=== PATIENT | female | born 1970 | race African-American/Black ===

== ENCOUNTER → 2020-11-25 | Outpatient (CLI) | payer OTHER ==
--- NOTE | 2020-11-26 20:55 | SLEEP ---
DATE OF STUDY: 11/25/2020 SLEEP STUDY REFERRING PHYSICIAN: Dr. Joyce Escalante. The patient is a 50-year-old who weighs 230 pounds with a BMI of 35. The patient's Madison score was 5. The patient underwent split night study performed at [facility]. During the night study, the patient spent 502 minutes in bed and slept for 399 minutes with a sleep efficiency of 79%. Sleep latency was 10 minutes with an absent REM sleep. Sleep architecture showed increased stage 1 sleep, normal stage 2 sleep, normal slow wave and absent REM sleep. During initial diagnostic portion of the study, the patient slept for 125 minutes. During that time, patient had 64 obstructive apneas, 27 mixed apneas and 9 central apneas. The patient also had 25 hypopneas. The patient's AHI was 60 per hour. Supine AHI 67 per hour. REM sleep was not observed. EKG monitoring revealed no sustained arrhythmias. Average heart rate was 57 beats per minute. No significant PLMs seen. Nocturnal oximetry study revealed a mean oxygen saturation of 94% with lowest of 84%. Only 6% of time oxygen saturation remained between 80 and 89%. The patient met the criteria for CPAP initiation. It was started at 5 cm water and titrated up to 9 cm water. At the final pressure, the patient slept for 73 minutes. The patient had supine sleep, but no REM sleep. The patient's AHI was reduced to 2 per hour and oxygen saturation remained above 90%. The patient used large sized nasal pillows. IMPRESSION: 1. Severe obstructive sleep apnea at an AHI of 60 per hour. 2. Mild nocturnal hypoxia secondary to obstructive sleep apnea, but resolved with CPAP. 3. No clinically significant periodic limb movements. RECOMMENDATIONS: 1. CPAP at 9 cm water completely eliminated the patient's sleep apnea and should be used on a nightly basis. 2. Follow up in 4-6 weeks to assess compliance with CPAP and to document clinical improvement. 3. Weight loss is strongly advised. 4. Avoid [employer] depressants. 5. Cautioned regarding driving until symptoms of sleep apnea resolve with the use of CPAP. AMARIS DR: Iftikhar TID: [id number] CC: Dr. Joyce Escalante
== END ==
LOC: SLPLAB 19:11
PROVIDERS: ATTEND Family Medicine
DX: G47.33 Obstructive sleep apnea (adult) (pediatric) (principal); R09.02 Hypoxemia
CPT/HCPCS: 95810